=== PATIENT | male | born 1960 | race Asian ===

== ENCOUNTER 2021-03-08 17:55 | Emergency (ER) | payer OTHER ==
[~2021-03-08] VITALS: Ht 185.4 cm; Wt 103.9 kg
[2021-03-08 17:59] VITALS: BP 147/82; TEMP 97.3
[2021-03-08 18:29] LABS: PLATELET COUNT 172 K/uL (142-355)
[2021-03-08 18:55] LABS: POTASSIUM 4.9 mmol/L (3.6-5.2)
[2021-03-09] MEDS ORDERED: MEDROXYPROG150 MG/ML IM (06:54)
[2021-03-09] MEDS ORDERED: PROPRANOLOL HYD60 MG PO (06:55)
[2021-03-09] MEDS ORDERED: AMANTADINE100 MG PO (06:55)
[2021-03-09] MEDS ORDERED: DONEPEZIL HYDRO10 MG PO (06:56)
[2021-03-09] MEDS ORDERED: LIPITOR20 MG PO (06:56)
[2021-03-09] MEDS ORDERED: ROWEEPRA500 MG PO (06:57)
[2021-03-09] MEDS ORDERED: OXCARBAZEPIN300 MG PO (06:58)
[2021-03-09] MEDS ORDERED: MEMANTINE HYDRO10 MG PO (06:58)
[2021-03-09] MEDS ORDERED: PAROXETINE40 MG PO (06:59)
[2021-03-09] MEDS ORDERED: TAMSULOSIN HYD0.4 MG PO (07:00)
== END 2021-03-08 19:15 | disposition still patient (30) ==
LOC: ED 17:55
PROVIDERS: Hospitalist
DX: F25.8 Other schizoaffective disorders (principal); R46.89 Other symptoms and signs involving appearance and behavior; Z11.52 Encounter for screening for COVID-19; Z04.6 Encounter for general psychiatric examination, requested by authority
CPT/HCPCS: 80053; 85027; 87635; 93005; 99283; U0003